=== PATIENT | female | born 1970 | race African-American/Black ===

== ENCOUNTER 2018-09-07 04:47 | Emergency (ER) | payer OTHER ==
[~2018-09-07] VITALS: Ht 167.6 cm; Wt 82.0 kg
[2018-09-07] MEDS ORDERED: KETOROLAC 30MG/ML VIAL IV STA (08:11)
[2018-09-07 09:02] LABS: HEMATOCRIT. 29.5 % (36.0-48.0); HEMOGLOBIN. 8.7 g/dL (12.0-16.0); MEAN CORPUSCULAR HEMOGLOBIN 19.2 pg (28.0-32.0); MEAN CORPUSCULAR VOLUME 65.3 fL (81.0-99.0); MEAN PLATELET VOLUME 7.5 fl (7.4-10.4); PLATELET 428 x1000/uL (130-400); RED BLOOD CELL COUNT 4.51 mill/uL (4.2-5.4); RED CELL DISTRIBUTION WIDTH 18.9 % (11.6-14.6)
[2018-09-07 09:04] LABS: CHLORIDE 104 mEq/L (98-107)
[2018-09-07 09:10] LABS: PROTHROMBIN TIME 10.3 sec (9.1-11.1)
[2018-09-07 09:13] LABS: CLARITY URINE CLEAR (CLEAR); COLOR URINE YELLOW (YELLOW); KETONES URINE NEGATIVE (NEGATIVE); LEUKOCYTE ESTERASE URINE NEGATIVE (NEGATIVE); NITRITE URINE NEGATIVE (NEGATIVE); OCCULT BLOOD URINE NEGATIVE (NEGATIVE); PH URINE 5.5 (4.5-8.0); PROTEIN URINE TRACE (NEGATIVE); SPECIFIC GRAVITY URINE 1.034 (1.005-1.030); UROBILINOGEN URINE 0.2 E.U./dL (0.2-1.0)
[2018-09-07 09:32] LABS: PLATELET ESTIMATE INCREASED
[2018-09-07 10:30] VITALS: BP 147/78
== END 2018-09-07 11:10 | disposition home or self-care (01) ==
LOC: ER 04:47
DX: K80.20 Calculus of gallbladder without cholecystitis without obstruction (principal); I10 Essential (primary) hypertension
CPT/HCPCS: 36415; 76705; 80053; 81003; 81025; 83690; 85025; 85610; 96374; 99284; J1885